=== PATIENT | male | born 1995 | race Caucasian/White ===

== ENCOUNTER 2017-10-19 15:31 | Emergency (ER) | payer OTHER ==
[~2017-10-19] VITALS: Ht 180.3 cm; Wt 99.8 kg
[2017-10-19] MEDS ORDERED: LIDOCAINE 2% 20 ML (XYLOCAINE) VIAL ONE (15:45)
[2017-10-19] MEDS ORDERED: LIDOCAINE 2% 20 ML (XYLOCAINE) VIAL INJ ONE (16:00)
--- NOTE | 2017-10-19 16:23 | ED Upper Extremity ---
General Chief Complaint: Laceration Stated Complaint: LEFT HAND LAC Source: patient Exam Limitations: no limitations History of Present Illness Date Seen by Provider: Oct 19, 2017 Time Seen by Provider: 16:17 Initial Comments To ER per private vehicle from work at [employer] with reports of a laceration to the dorsal left thumb from using a pocketknife to open a box. Onset: just prior to arrival Severity: moderate Pain/Injury Location: left thumb Method of Injury: incised Modifying Factors: Worse With Movement Allergies and Home Medications Allergies Coded Allergies: No Known Drug Allergies (Unverified , 10/19/17) Patient Home Medication List Home Medication List Reviewed: Yes Constitutional: see HPI EENTM: see HPI Respiratory: no symptoms reported Cardiovascular: no symptoms reported Genitourinary: no symptoms reported Musculoskeletal: see HPI Skin: no symptoms reported Psychiatric/Neurological: No Symptoms Reported Past Sxudeqy-Dwidwz-Mckhwb Hx Patient Social History Alcohol Use: Occasionally Uses Alcohol Beverage of Choice: Other Recreational Drug Use: No Smoking Status: Never a Smoker Recent Foreign Travel: No Contact w/Someone Who Travel: No Physical Abuse: No Sexual Abuse: No Mistreated: No Fear: No Past Medical History Nursing Suicide Risk Score: 0 Physical Exam Vital Signs Capillary Refill : Less Than 3 Seconds General Appearance: WD/WN, no apparent distress HEENT: PERRL/EOMI, normal ENT inspection Neck: non-tender, full range of motion Cardiovascular: regular rate, rhythm, no murmur Respiratory: no respiratory distress, no accessory muscle use Gastrointestinal: normal bowel sounds, non tender Elbow/Forearm: normal inspection, non-tender, Left Wrist: Yes normal inspection, Yes non-tender Hand: Left, laceration (There is a 2.5 cm laceration to the dorsal aspect of the left hand over the first metacarpal. There is a small amount of brisk bright red pulsatile flow. This may be a small arteriole or a distal branch of the radial artery. He has normal sensation of the fingertip of the thumb, normal capillary refill at 2 seconds distal thumb, he is able to flex the thumb fully but only able to extend the proximal phalanx of the thumb, cannot extend the distal phalanx of the thumb. It is unclear whether this inability to extend his due to pain or extensor tendon injury. ) Neurologic/Tendon: normal sensation, tendon function deficit; No tendon injury visualized Neurologic/Psychiatric: alert, normal mood/affect, oriented x 3 Skin: normal color, cyanosis Procedures/Interventions Wound Location: Upper Extremities Wound Length (cm): 2.5 Wound's Depth, Shape: into muscle Wound Explored: clean Irrigated w/ Saline (ccs): 40 Anesthesia: 1% Lidocaine Volume Anesthetic (ccs): 4 Suture: Prolene, Vicryl Suture Size: 4-0 Number of Sutures: 8 Layer Closure?: 2 Number Deep Layer Sutures: 2 Progress Area was anesthetized with 4 mL of 2% lidocaine locally. Area then scrubbed with chlorhexidine/saline solution. Wound was then explored. Small amount of brisk bright red pulsatile bleeding. Depth appears down to the extensor tendon, possibly into the extensor tendon that I cannot confirm this. 2 deep sutures were placed size 4-0 Vicryl simple buried suture. Skin edges were then brought together with 6 simple interrupted sutures size 4-0 Prolene. After suturing I reconfirmed normal sensation of the fingertip and brisk capillary refill. This was then covered with Neosporin, 2 x 2, gauze roll. Progress/Results/Core Measures My Orders Orders - AKIN EMERSON APRN Lidocaine 2% Injection 20 Ml (Xylocaine (10/19/17 16:00) Lidocaine 2% Injection 20 Ml (Xylocaine (10/19/17 15:45) Departure Impression Primary Impression: Laceration of hand involving extensor tendon Disposition: 01 HOME, SELF-CARE Condition: Stable Departure-Patient Inst. Decision time for Depature: 16:24 Referrals: NO,LOCAL PHYSICIAN (PCP) Primary Care Physician LASHONDA GAMEZ DO Patient Instructions: Laceration Repair With Stitches (DC) Add. Discharge Instructions: 1. Return to ER for any sign of infection such as redness, pus like drainage, swelling or increased pain. You should still call Dr. Gamez, hand surgeon for further evaluation since there is presumed tendon involvement as you are unable to extend the first part of your thumb. Stitches should be removed in 7-10 days , you may have this done here in the emergency room at no charge. All discharge instructions reviewed with patient and/or family. Voiced understanding. Images Extremities-Upper 1 - Laceration AKIN EMERSON APRN Oct 19, 2017 16:23
[2017-10-19 16:41] VITALS: BP 132/98
== END 2017-10-19 16:39 | disposition home or self-care (01) ==
LOC: ER 15:33
DX: S61.012A Laceration without foreign body of left thumb without damage to nail, initial encounter (principal); W26.0XXA Contact with knife, initial encounter; Y92.89 Other specified places as the place of occurrence of the external cause; Y99.0 Civilian activity done for income or pay
CPT/HCPCS: 12013